=== PATIENT | female | born 1990 | race Hispanic/Latino ===

== ENCOUNTER 2017-05-02 00:41 | Emergency (ER) | payer MEDICAID, OTHER ==
[2017-05-02] MEDS ORDERED: ACETAMINOPHEN 325 MG TAB ONE (02:15)
[2017-05-02 02:26] LABS: APPEARANCE,URINE Clear (CLEAR); BILIRUBIN,URINE Negative (NEGATIVE); COLOR,URINE Yellow (YELLOW); GLUCOSE, URINE (UA) Negative (NEGATIVE); KETONES,URINE Negative (NEGATIVE); LEUKOCYTE ESTERASE ,URINE Small (NEGATIVE); NITRATE,URINE Negative (NEGATIVE); OCCULT BLOOD,URINE Large (NEGATIVE); PH,URINE 5.5 (5.0-8.0); PROTEIN,URINE Negative (NEGATIVE)
[2017-05-02 02:40] LABS: BACTERIA,URINE Few /HPF (None Seen); MUCUS,URINE Moderate LPF (None Seen); SQUAMOUS EPITHELIAL CELL,UR Moderate /LPF (0-2)
[2017-05-02 02:40] LABS: BASOPHILS % (AUTO) 0.5 % (0.0-5.0); EOSINOPHILS % (AUTO) 1.3 % (0.0-8.0); HEMATOCRIT 37.6 % (36-48); LYMPHOCYTES % (AUTO) 22.6 % (21.0-51.0); MEAN CORPUSCULAR HEMOGLOBIN 26.6 pg (27.0-33.0); MEAN CORPUSCULAR HGB CONC 32.9 g/dL (32.0-36.0); MEAN CORPUSCULAR VOLUME 80.6 fL (79-99); MONOCYTES % (AUTO) 5.1 % (3.0-13.0); NEUTROPHILS % (AUTO) 70.5 % (40.0-77.0); PLATELET COUNT (AUTO) 290 K/uL (130-400); RED BLOOD CELL COUNT(AUTO) 4.66 MIL/uL (4.00-5.50); RED CELL DISTRIBUTION WIDTH 15.2 % (11.0-15.5); WHITE BLOOD COUNT (AUTO) 13.9 K/uL (4.8-10.8)
[2017-05-02 02:50] LABS: CREATININE 0.6 mg/dL (0.5-1.5); POTASSIUM 3.5 mmol/L (3.5-5.1)
[2017-05-02] MEDS ORDERED: SODIUM CHLORIDE 0.9% 1000ML 1,000 ML IV ONE (03:04)
== END 2017-05-02 03:39 | disposition home or self-care (01) ==
LOC: EDH 00:41
DX: O20.0 Threatened abortion (principal); Z91.040 Latex allergy status; Z98.890 Other specified postprocedural states; Z3A.08 8 weeks gestation of pregnancy
CPT/HCPCS: 36415; 76801; 80048; 81001; 81025; 84702; 85025; 86900; 86901; 99285; J7030

== ENCOUNTER 2019-02-26 12:20 | Emergency (ER) | payer OTHER ==
[2019-02-26] MEDS ORDERED: DiphenhydrAMINE HCL 50 MG/ML VIAL ONE (13:13)
[2019-02-26] MEDS ORDERED: METHYLPREDNISOLONE SOD SUCC 125MG/2ML VIAL ONE (13:13)
[2019-02-26] MEDS ORDERED: KETOROLAC TROMETHAMINE 30MG/ML ONE (13:14)
[2019-02-26] MEDS ORDERED: SODIUM CHLORIDE 0.9% 1000ML 1,000 ML IV ONE (13:14)
[2019-02-26 14:05] LABS: APPEARANCE,URINE Clear (CLEAR); BILIRUBIN,URINE Negative (NEGATIVE); COLOR,URINE Yellow (YELLOW); GLUCOSE, URINE (UA) Negative (NEGATIVE); KETONES,URINE Negative (NEGATIVE); LEUKOCYTE ESTERASE ,URINE Small (NEGATIVE); NITRATE,URINE Negative (NEGATIVE); OCCULT BLOOD,URINE Moderate (NEGATIVE); PH,URINE 6.5 (5.0-8.0); PROTEIN,URINE Trace mg/dL (NEGATIVE)
[2019-02-26 14:07] LABS: HCG,QUAL RESULT NEGATIVE (NEGATIVE)
[2019-02-26 14:14] LABS: BACTERIA,URINE Rare /HPF (None Seen); MUCUS,URINE Rare LPF (None Seen); RBC,URINE 0-1 /HPF (0-1); SQUAMOUS EPITHELIAL CELL,UR Rare /HPF (0-2)
== END 2019-02-26 16:00 | disposition home or self-care (01) ==
LOC: EDH 12:20
DX: R51 Headache (principal); R11.2 Nausea with vomiting, unspecified; Z91.040 Latex allergy status; Z98.51 Tubal ligation status
CPT/HCPCS: 70450; 81001; 81025; 96361; 96374; 96375; 99285; J1200; J1885; J2930; J7030

== ENCOUNTER 2021-11-25 22:24 | Emergency (ER) | payer OTHER ==
[~2021-11-25] VITALS: Ht 149.9 cm; Wt 62.1 kg
[2021-11-25 22:53] LABS: BASOPHILS % (AUTO) 0.7 % (0.0-5.0); EOSINOPHILS % (AUTO) 1.6 % (0.0-8.0); HEMATOCRIT 32.9 % (36-48); LYMPHOCYTES % (AUTO) 28.8 % (21.0-51.0); MEAN CORPUSCULAR HEMOGLOBIN 23.9 pg (27.0-33.0); MEAN CORPUSCULAR HGB CONC 31.9 g/dL (32.0-36.0); MEAN CORPUSCULAR VOLUME 74.8 fL (79-99); MONOCYTES % (AUTO) 7.2 % (3.0-13.0); NEUTROPHILS % (AUTO) 61.3 % (40.0-77.0); PLATELET COUNT (AUTO) 348 K/uL (130-400); RED CELL DISTRIBUTION WIDTH 14.6 % (11.0-15.5); WHITE BLOOD COUNT (AUTO) 10.5 K/uL (4.8-10.8)
[2021-11-25] MEDS ORDERED: 0.9%NACL 1000ML 1,000 ML IV ONE ×2 (23:00)
[2021-11-25] MEDS ORDERED: DiphenhydrAMINE HCL 50 MG/ML VIAL IV ONE (23:00)
[2021-11-25] MEDS ORDERED: METOCLOPRAMIDE 10 MG/2 ML VIAL IVP ONE (23:00)
[2021-11-25] MEDS ORDERED: MORPHINE 4 MG SYG IVP ONE (23:00)
[2021-11-25 23:02] LABS: CREATININE 0.8 mg/dL (0.5-1.5); POTASSIUM 4.1 mmol/L (3.5-5.1)
[2021-11-25 23:04] LABS: APPEARANCE,URINE CLEAR (CLEAR); BILIRUBIN,URINE NEGATIVE (NEGATIVE); COLOR,URINE YELLOW (YELLOW); GLUCOSE, URINE (UA) NEGATIVE (NEGATIVE); KETONES,URINE NEGATIVE (NEGATIVE); LEUKOCYTE ESTERASE ,URINE NEGATIVE (NEGATIVE); NITRATE,URINE NEGATIVE (NEGATIVE); OCCULT BLOOD,URINE MODERATE (NEGATIVE); PROTEIN,URINE NEGATIVE (NEGATIVE); UROBILINOGEN,URINE 0.2 mg/dL (0.2-1.0)
[2021-11-25 23:06] LABS: ALBUMIN 4.1 g/dL (3.5-5.0); TOTAL PROTEIN, SERUM 8.2 g/dL (6.0-8.3)
[2021-11-25 23:07] LABS: HCG,QUALITATIVE URINE NEGATIVE (NEGATIVE)
[2021-11-25 23:14] LABS: BACTERIA,URINE None Seen /HPF (None Seen); CALCIUM OXALATE CRYSTALS,UR Moderate /LPF (None Seen); SQUAMOUS EPITHELIAL CELL,UR Few /HPF (0-2); WBC,URINE None Seen /HPF (0-1)
[2021-11-26] MEDS ORDERED: ONDANSETRON 4MG INJ IVP ONE
[2021-11-26] MEDS ORDERED: HYDRALAZINE 20MG/ML VIAL IV ONE
[2021-11-26 01:36] VITALS: BP 117/67
[2021-11-26 02:24] LABS: AMPHET/METH SCREEN,URINE NEGATIVE (NEGATIVE); BARBITURATE SCREEN, URINE NEGATIVE (NEGATIVE); BENZODIAZEPINES SCREEN,URINE NEGATIVE (NEGATIVE); CANNABINOID SCREEN,URINE NEGATIVE (NEGATIVE); COCAINE SCREEN,URINE NEGATIVE (NEGATIVE); PHENCYCLIDINE SCREEN,URINE NEGATIVE (NEGATIVE)
[2021-11-26] MEDS ORDERED: METO10TA41 PO (05:43)
[2021-11-28 13:10] LABS: OPIATES SCREEN URINE Negative ng/mL (Cutoff=300)
== END 2021-11-26 05:57 | disposition home or self-care (01) ==
LOC: EDH 22:24
DX: K52.9 Noninfective gastroenteritis and colitis, unspecified (principal); I10 Essential (primary) hypertension; R31.9 Hematuria, unspecified; Z20.822 Contact with and (suspected) exposure to COVID-19; N20.0 Calculus of kidney; Z91.040 Latex allergy status
CPT/HCPCS: 99284; 74176; 96374; 96361; 96375 ×2; 87635; 80053; 80305; 83690; 85025; 81025; 36415; 81001; C9803; J1200; J7030; J0360; J2270; J2765; J2405

== ENCOUNTER → 2021-12-17 | Outpatient (CLI) | payer BC, OTHER ==
[~2021-12-17] MED LIST: METO10TA41 PO
== END | disposition home or self-care (01) ==
LOC: RAH 09:05
PROVIDERS: ATTEND Internal Medicine Gastroenterology
DX: R11.0 Nausea (principal); R10.13 Epigastric pain; R14.0 Abdominal distension (gaseous)
CPT/HCPCS: 74240

== ENCOUNTER → 2021-12-18 | Outpatient (CLI) | payer BC, OTHER | END | disposition home or self-care (01) | LOC: RAH 11:06 | PROVIDERS: ATTEND Internal Medicine Gastroenterology | DX: R10.13 Epigastric pain (principal); R14.0 Abdominal distension (gaseous); R11.0 Nausea | CPT/HCPCS: 78264; A9541 ==